=== PATIENT | female | born 1975 | race Caucasian/White ===

== ENCOUNTER → 2020-05-02 13:09 | Outpatient (ROUT) | payer BC, SELFPAY ==
[2020-05-02 13:36] LABS: COVID19 -Nasal RAPID Negative (Negative)
== END ==
PROVIDERS: Visit Provider Family Medicine
DX: Z20.828 Contact with and (suspected) exposure to other viral communicable diseases (principal)
CPT/HCPCS: 87635

== ENCOUNTER → 2020-12-11 11:37 | Outpatient (ROUT) | payer BC, SELFPAY ==
[2020-12-11 12:48] LABS: COVID19 -Nasal RAPID POSITIVE (Negative)
== END ==
PROVIDERS: Visit Provider Family Medicine
DX: U07.1 COVID-19 (principal)
CPT/HCPCS: 87635

== ENCOUNTER → 2021-04-24 15:12 | Outpatient (CLI) | payer BC, OTHER, SELFPAY ==
--- NOTE | 2021-04-24 | DI.RAD.S_ITS ---
PROCEDURE: XR KNEE RT 3V INDICATIONS: RIGHT KNEE INJURY TECHNIQUE: 3 views of the knee were acquired. COMPARISON: [facility], KNEE 3V RIGHT, 10/17/2014, 10:38. [facility], KNEE 3V LEFT, 01/30/2017, 17:20. FINDINGS: Bones: No fractures or dislocations. There is minimal joint space narrowing in the medial compartment. No suspicious bony lesions. Soft tissues: No joint effusion. No suspicious soft tissue calcifications. IMPRESSION: 1. No acute bony abnormality. Dictated by: Gavino Quigley M.D. on 04/24/2021 at 16:35 Approved by: Gavino Quigley M.D. on 04/24/2021 at 16:37
== END ==
PROVIDERS: Referring Provider Physician Assistant; Visit Provider Physician Assistant
DX: S89.91XA Unspecified injury of right lower leg, initial encounter (principal); X58.XXXA Exposure to other specified factors, initial encounter
CPT/HCPCS: 73562

== ENCOUNTER 2021-11-19 11:53 | Emergency (ER) | payer BC, OTHER, SELFPAY ==
[2021-11-19 12:07] VITALS: BP 153/94; PULSE 82; RESP 16; TEMP 37.1; O2SAT 99; BMI 32.3
--- NOTE | 2021-11-19 12:10 | DI.RAD.S_ITS ---
PROCEDURE: XR ANKLE LT MIN 3V INDICATIONS: L ankle injury TECHNIQUE: 3 views of the ankle were acquired. COMPARISON: None. FINDINGS: Bones: There is a minimally displaced oblique fracture of the distal fibular metaphysis. Ankle mortise is normally aligned. No definite distal tibial fracture is seen. No suspicious bony lesions. Soft tissues: Soft tissue edema is seen over the lateral malleolus. IMPRESSION: Minimally displaced oblique fracture of the distal fibular metaphysis. Dictated by: Levi Chan M.D. on 11/19/2021 at 12:30 Approved by: Levi Chan M.D. on 11/19/2021 at 12:32
--- NOTE | 2021-11-19 13:57 | ED_ITS ---
HPI - Extremity Injury (Lower) <CARLOS Vick - Last Filed: 11/19/21 14:09> General Chief Complaint: Extremity Injury, Lower Stated Complaint: slipped, hurt left ankle Time Seen by Provider: 11/19/21 13:19 Source: patient Mode of arrival: Wheelchair History of Present Illness HPI Narrative: 46-year-old female presents to the emergency department with left ankle pain after rolling her ankle 2 days ago. Positive bruising and swelling to lateral side of ankle. Patient endorses pain with weight-bearing. Patient denies any history ankle injuries. Related Data Home Medications Medication Instructions Recorded Confirmed multivitamin (Multiple Vitamins 1 tab PO QDAY ##0 01/30/17 04/24/21 tablet) Previous Rx's Medication Instructions Recorded oxycodone-acetaminophen 5 mg-325 1 tab PO Q6H PRN pain, severe #12 04/24/21 mg tablet (Percocet) tabs cyclobenzaprine 5 mg tablet 5 mg PO TID PRN muscle spasm #20 10/25/21 tabs oxycodone-acetaminophen 5 mg-325 1 tab PO Q6H PRN pain #10 tabs 11/19/21 mg tablet Allergies Allergy/AdvReac Type Severity Reaction Status Date / Time No Known Drug Allergies Allergy Verified 11/19/21 12:10 Review of Systems <CARLOS Vick - Last Filed: 11/19/21 14:09> Review of Systems Narrative: Narrative: GENERAL: Denies chills, fatigue, fever, sweats. See HPI HEENT: Denies sinus pain, ear pain, sore throat, difficulty swallowing, dizziness. RESPIRATORY: Denies dyspnea, cough, wheezing, sputum. CARDIOVASCULAR: Denies chest pain, palpitations, edema. GASTROINTESTINAL: Denies nausea, vomiting, abdominal pain, diarrhea, constipation. : Denies dysuria, frequency, incontinence, hematuria, urinary retention, flank pain. MUSCULOSKELETAL: Denies weakness. SKIN: Denies rash, skin lesions, or pruritis. NEUROLOGIC: Denies weakness, dizziness, headache, numbness, confusion. PSYCHIATRIC: No concerning psychosocial issues. Patient History <CARLOS Vick - Last Filed: 11/19/21 14:09> Social History Smoking Status: Former smoker Smoking Status: Former smoker alcohol intake frequency: a few times a month Substance Use Type: does not use Exam <CARLOS Vick - Last Filed: 11/19/21 14:09> Narrative Exam Narrative: Exam Narrative: GENERAL: This is a well-nourished, well-developed patient, in no acute distress HEAD: Atraumatic. Normocephalic. EYES: Pupils equal round and reactive. Extraocular motions intact. No scleral icterus, injection or drainage. ENT: Nose without bleeding, purulent drainage. Throat without erythema, tonsillar hypertrophy or exudate. Airway patent. NECK: Trachea midline. No JVD or lymphadenopathy. Nontender. CARDIOVASCULAR: Regular rate and rhythm without murmurs, peripheral pulses intact, cap refill <2 sec. RESPIRATORY: Breath sounds equal and clear bilaterally. No wheezes, rales, or rhonchi. No cough. No increased respiratory effort. No accessory muscle use. GASTROINTESTINAL: Abdomen soft, non-tender, nondistended without guarding or rebound. No suprapubic pain. EXTREMITIES: Left ankle bruising and swelling. Neurovascularly intact. NEURO: A&O x 3. SKIN: Warm, dry, no rashes or lesions noted. Initial Vital Signs Initial Vital Signs: Vital Signs Temperature 98.7 F 11/19/21 12:07 Pulse Rate 82 11/19/21 12:07 Respiratory Rate 16 11/19/21 12:07 Blood Pressure 153/94 H 11/19/21 12:07 Pulse Oximetry 99 11/19/21 12:07 Oxygen Delivery Method 11/19/21 12:07 Reviewed Extrem Other: ANKLE: There is bruising, swelling but no asymmetry. There is no tenderness to general palpation. Sensation grossly intact. There is no tenderness over the medial malleolus, proximal tibia/fibula. The anterior mortise is non-tender. Flexion and extension is intact. Unable to test for stability or laxity due to pain. The contralateral ankle exam is unremarkable. <Chelsey Moscoso DO - Last Filed: 11/20/21 07:42> Initial Vital Signs Initial Vital Signs: Vital Signs Temperature 98.7 F 11/19/21 12:07 Pulse Rate 82 11/19/21 12:07 Respiratory Rate 16 11/19/21 12:07 Blood Pressure 153/94 H 11/19/21 12:07 Pulse Oximetry 99 11/19/21 12:07 Oxygen Delivery Method 11/19/21 12:07 Procedures <CARLOS Vick - Last Filed: 11/19/21 14:09> Orthopedic Splinting/Casting Injury #1: Side: left Lower Extremity Immobilizer: boot orthosis Post splinting neuro exam: intact Post splinting vascular exam: intact Placed by: Nursing Course <CARLOS Vick - Last Filed: 11/19/21 14:09> Orders Ordered: ED Orders 11/19/21 12:10 XR ankle LT min 3V Stat Vital Signs Vital signs: Vital Signs - 8 hr 11/19/21 12:07 Temperature 98.7 F Pulse Rate 82 Respiratory Rate 16 Blood Pressure 153/94 H Pulse Oximetry 99 Oxygen Delivery Method Room Air <Chelsey Moscoso DO - Last Filed: 11/20/21 07:42> Orders Ordered: ED Orders 11/19/21 12:10 XR ankle LT min 3V Stat Vital Signs Vital signs: Vital Signs - 8 hr 11/19/21 12:07 Temperature 98.7 F Pulse Rate 82 Respiratory Rate 16 Blood Pressure 153/94 H Pulse Oximetry 99 Oxygen Delivery Method Room Air MDM - Extremity Injury (Lower) <CARLOS Vick - Last Filed: 11/19/21 14:09> Differential Diagnosis Differential diagnosis: Likely ankle fracture Imaging Data Extremity x-ray #1: Radiologist's Impression: [address] [id number] ReportSigned Patient: Ariadna Nolan DMR#: [id number]: [id number]:[id number]/Sex: 46 / FDate of Service: 11/19/21Loc: EDAccession Number: [id number] Procedure: XR ankle LT min 3V Ordering Provider: Chelsey Moscoso D.O. PROCEDURE: XR ANKLE LT MIN 3V INDICATIONS: L ankle injury TECHNIQUE: 3 views of the ankle were acquired. COMPARISON: None. FINDINGS: Bones: There is a minimally displaced oblique fracture of the distal fibular metaphysis. Ankle mortise is normally aligned. No definite distal tibial fracture is seen. No suspicious bony lesions. Soft tissues: Soft tissue edema is seen over the lateral malleolus. IMPRESSION: Minimally displaced oblique fracture of the distal fibular metaphysis. Dictated by: Levi Chan M.D. on 11/19/2021 at 12:30 Approved by: Levi Chan M.D. on 11/19/2021 at 12:32 [facility] Narrative Medical decision making narrative: 46-year-old female presents to emergency department with left ankle pain. X-ray reveals fracture of fibula. Patient placed in a walking boot. Patient has crutches and a scooter at home. Provided a limited amount of pain medication to help her sleep. Recommended rice and NSAIDs. Instructed patient to follow up with her family doctor if symptoms persist or worsen. Discharge Plan Departure Patient Disposition: Home Clinical Impression: Ankle fracture Instructions: DI for Fracture Activity Restrictions/Additional Instructions: *You have been diagnosed with left ankle fracture. We have fitted you for a walking boot, please use your crutches or scooter for ease of ambulation. Recommend ibuprofen 600 mg 3 times a day with food for the next 3-5 days. Rest (modified activity), along with ice, compression wrap/splint-immobilize as directed and elevation above heart. Tylenol or Ibuprofen for discomfort. I will give you a limited amount pain medication to help you sleep over the next few nights. *What to do: *Please continue to take your regular medications as directed. [ ] New medication prescriptions sent to your pharmacy: [ ] [x ] New medication written as a paper prescription [ ] No new medications given *Please follow up with your primary care provider in 2-3 days, call for an appointment. Let them know you were seen in the Emergency Department and that we ask that you be seen in follow up. We will electronically transmit a record of today's note if your PCP is in our system *If you do not have a primary care provider please contact the [facility] Resource line at [phone]. They will ask some questions about your medical history and help get you set up with a doctor in the community. ? Return to ER if you should have any new, worsening or concerning symptoms, such as worsening pain, severe headache, confusion, chest pain, difficulty breathing, fever greater than 101 F, shaking chills, persistent vomiting to the point that you cannot drink fluids, or other new or worsening symptoms. Prescriptions: New oxycodone-acetaminophen 5-325 mg tablet 1 tab PO Q6H PRN (Reason: pain) Qty: 10 0RF No Action oxycodone-acetaminophen [Percocet] 5-325 mg tablet 1 tab PO Q6H PRN (Reason: pain, severe) Qty: 12 0RF cyclobenzaprine 5 mg tablet 5 mg PO TID PRN (Reason: muscle spasm) Qty: 20 0RF multivitamin [Multiple Vitamins] 1 EACH tablet 1 tab PO QDAY Qty: 0 Referrals: Miscellaneous,Doctor, MD [Primary Care Provider] - Visit Report Forms: Patient Portal/API <Chelsey Moscoso DO - Last Filed: 11/20/21 07:42> Cosign ED Attending Kathleen Attestation: I was immediately available in the department for consultation. Documentation has been reviewed. I agree with assessment and plan.
== END 2021-11-19 14:21 | disposition home or self-care (01) ==
PROVIDERS: Emergency Provider Registered Nurse
DX: S82.832A Other fracture of upper and lower end of left fibula, initial encounter for closed fracture (principal); X50.1XXA Overexertion from prolonged static or awkward postures, initial encounter
CPT/HCPCS: 73610; 99281; 99283